=== PATIENT | female | born 1965 | race Caucasian/White ===

== ENCOUNTER → 2016-10-26 | Outpatient (CLI) | payer OTHER | END | disposition home or self-care (01) | LOC: CFH 11:56 | PROVIDERS: ATTEND Internal Medicine | DX: Z13.220 Encounter for screening for lipoid disorders (principal); Z12.11 Encounter for screening for malignant neoplasm of colon; Z12.4 Encounter for screening for malignant neoplasm of cervix; Z12.39 Encounter for other screening for malignant neoplasm of breast; M25.562 Pain in left knee; E03.9 Hypothyroidism, unspecified; N95.1 Menopausal and female climacteric states; E78.1 Pure hyperglyceridemia; R51 Headache; M54.2 Cervicalgia; K58.8 Other irritable bowel syndrome; M75.51 Bursitis of right shoulder ==

== ENCOUNTER → 2017-08-02 | Outpatient (CLI) | payer OTHER | END | disposition home or self-care (01) | LOC: CFH 10:29 | PROVIDERS: ATTEND Nurse Practitioner Primary Care | DX: M54.6 Pain in thoracic spine (principal); R10.9 Unspecified abdominal pain | CPT/HCPCS: 72072 ==